=== PATIENT | male | born 1955 | race Caucasian/White ===

== ENCOUNTER → 2019-01-29 | Outpatient (CLI) | payer OTHER, SELFPAY ==
[2019-01-29 15:39] LABS: Absolute Lymphocyte Count 1.04 X10^3/ul (0.83-4.51); Absolute Neutrophil Count 2.9 X10^3/uL (2.0-7.7); Basophil# 0.03 X10^3/uL; Basophil% 0.7 % (0-1); Eosinophil# 0.08 X10^3/uL; Eosinophils% 1.7 % (0-5); Hematocrit 41.7 % (40-54); Hemoglobin 14.6 g/dl (13.0-16.5); Lymphocyte # 1.04 X10^3/ul (4.0); Lymphocyte % 22.7 % (19-41); Mean Corpuscular Hgb 31.7 pg (27.0-32.0); Mean Corpuscular Volume 90.7 fL (80-94); Mean Platelet Vol. 9.1 fl (6.2-12.0); Monocyte# 0.53 X10^3/uL; Monocyte% 11.5 % (0-10); Neutrophil % 63.2 % (47-70); POSITIVE COUNT NO; POSITIVE DIFFERENTIAL NO; POSITIVE MORPHOLOGY NO; Platelet Count 182 K/mm3 (150-450); RBC Distribution Width CV 12.7 % (11.6-14.6); RBC Distribution Width SD 41.8 fl (35.1-43.9); White Blood Count 4.6 K/mm3 (4.4-11.0)
[2019-01-29 16:01] LABS: AST(SGOT) 49 U/L (15-37); Alanine Aminotransfer ALT/SGPT 54 U/L (16-61); Albumin, Serum 4.3 g/dL (3.2-5.0); Alkaline Phosphatase 91 U/L (45-117); Anion Gap 9 (5-15); BUN 15 mg/dL (7-18); BUN/Creat Ratio 10.9 RATIO (10-20); Bilirubin, Direct 0.11 mg/dL (0.00-0.30); Calcium,Total 9.4 mg/dL (8.5-10.1); Chloride 94 mmol/L (98-107); Creatinine, Serum 1.38 mg/dL (0.70-1.30); EST Glomerular Filtration Rate 55 mL/min (>60); Est Glom Filt Rate - Afr Amer 67 mL/min (>60); Globulin 3.4 g/dL (2.2-4.2); Glucose 79 mg/dL (74-106); Potassium 4.4 mmol/L (3.5-5.1); Protein, Total 7.7 g/dL (6.4-8.2); Sodium Level 130 mmol/L (136-145)
[2019-02-03 20:06] LABS: QNTFERON TB Mitogen Value > 10.00 IU/mL (.); QNTFERON TB Nil Value 0.03 IU/mL (.); QNTFERON TB1+ Ag Value 0.06 IU/mL (.); QNTFERON TB2+ Ag Value 0.05 IU/mL (.)
[2019-02-04 11:44] LABS: QNTIFERON TB Positive Criteria Negative (Negative)
== END | disposition home or self-care (01) ==
LOC: MTLAB 14:04
DX: L40.0 Psoriasis vulgaris (principal)
CPT/HCPCS: 36415; 80048; 80076; 85025; 86480

== ENCOUNTER → 2019-11-06 16:33 | Outpatient (CLI) | payer OTHER, SELFPAY ==
[2019-11-06 17:35] LABS: Absolute Lymphocyte Count 1.19 X10^3/uL (0.83-4.51); Absolute Neutrophil Count 2.9 X10^3/uL (2.0-7.7); Basophil# 0.04 X10^3/uL; Basophil% 0.8 % (0-1); Eosinophil# 0.12 X10^3/uL; Eosinophils% 2.5 % (0-5); Hematocrit 38.8 % (40-54); Hemoglobin 13.1 g/dL (13.0-16.5); Lymphocyte # 1.19 X10^3/ul (4.0); Lymphocyte % 24.7 % (19-41); Mean Corp Hgb Conc 33.8 g/dL (32-36); Mean Corpuscular Volume 91.7 fL (80-94); Mean Platelet Vol. 9.4 fl (6.2-12.0); Monocyte# 0.52 X10^3/uL; Monocyte% 10.8 % (0-10); NRBC Flagged by Analyzer 0 % (0-5); Neutrophil # 2.93 X10^3/uL (2.7-7.7); Neutrophil % 60.8 % (47-70); Platelet Count 145 K/mm3 (150-450); RBC Distribution Width CV 12.1 % (11.6-14.6); RBC Distribution Width SD 40.8 fl (35.1-43.9); Red Blood Count 4.23 M/mm3 (4.6-6.2); White Blood Count 4.8 K/mm3 (4.4-11.0)
[2019-11-06 17:55] LABS: ALB/GLOB Ratio 1.2 RATIO (0.9-2.4); AST(SGOT) 41 U/L (15-37); Alanine Aminotransfer ALT/SGPT 47 U/L (16-61); Albumin, Serum 3.7 g/dL (3.2-5.0); Alkaline Phosphatase 77 U/L (45-117); Anion Gap 5 (5-15); BUN 13 mg/dL (7-18); Calcium,Total 8.7 mg/dL (8.5-10.1); Chloride 94 mmol/L (98-107); EST Glomerular Filtration Rate 59 mL/min (>60); Est Glom Filt Rate - Afr Amer 72 mL/min (>60); Globulin 3.1 g/dL (2.2-4.2); Glucose 87 mg/dL (74-106); Potassium 3.9 mmol/L (3.5-5.1); Protein, Total 6.8 g/dL (6.4-8.2); Sodium Level 129 mmol/L (136-145)
== END ==
PROVIDERS: Visit Provider Family Medicine
DX: Z01.818 Encounter for other preprocedural examination (principal)
CPT/HCPCS: 36415; 80053; 85025

== ENCOUNTER 2019-11-20 06:48 | Day surgery (SDC) | payer OTHER, SELFPAY ==
[2019-11-20 07:10] VITALS: BP 117/76; PULSE 58; RESP 14; TEMP 36.3; O2SAT 100; BMI 19.8
--- NOTE | 2019-11-20 07:30 | RAD_ITS ---
STUDY: X-RAY LEFT FOOT, 4 TOE REASON FOR EXAM: Male, 64 years old. HALLUX EXOSTECTOMY AND ARTHRODESIS HAMMERTOE CORRECTION W/INTERNAL FIXATION TECHNIQUE: 3 intraoperative view(s) of the toe were obtained. COMPARISON: None. FINDINGS: Intraoperative imaging provided for arthrodesis and hammertoe correction of the fourth toe. RAD/Toe(s) Min 2 Views IMPRESSION: Intraoperative imaging provided for arthrodesis and hammertoe correction of the fourth toe. Electronically Signed: Patrick Wong, at 13:15 EST , Service support ,
[2019-11-20] MEDS: Lactated Ringers 1,000 ML 80 ML IV (07:37)
--- NOTE | 2019-11-20 07:40 | PCM.PROGNOTE ---
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 There are no H&P changes. He is scheduled to have foot surgery today on November 20, 2019. - Physical Exam Vitals/I&O's: Vital Signs Temp Pulse Resp BP Pulse Ox 97.4 F L 58 L 14 117/76 100 11/20/19 07:10 11/20/19 07:10 11/20/19 07:10 11/20/19 07:10 11/20/19 07:10 Oxygen Delivery Method Room Air Weight: 60 kg Body Mass Index (BMI) 19.8 Current Medications Cefazolin Sodium 2 gm/ Sodium (Chloride) 110 mls @ 150 mls/hr IV PREOP ONE Stop: 11/20/19 07:43 Lactated Ringer's () 1,000 mls @ 80 mls/hr IV .[id number] INGA Stop: 11/20/19 19:29 Last Admin: 11/20/19 07:37 Dose: 80 mls/hr Documented by: Medical Necessity - Tobacco Use Smoking Status: Never smoker Tobacco Use: Non-smoker
[2019-11-20] MEDS: Cefazolin 2 GM in 0.9% Normal Saline 100 ML IV (08:17)
[2019-11-20] MEDS: Bupivacaine Mpf 0.5% 30 ML VIAL (08:40)
--- NOTE | 2019-11-20 10:05 | DCINST_ITS ---
Discharge Diet: No Restrictions Ice area for (Minutes): 15 - to back of knee if needed for pain.do not apply to foot Weight Bearing Status: Partial weight bearing - heel weightbear with surgical shoe. use crutches if needed for assistance Call your doctor if your incision/area has: Continuous Slow Oozing, Sudden Increased Bleeding, Increased Pain/ Swelling, Increased Redness, Foul Smelling Discharge, Swelling at the incision site Call your doctor if you observe: Fever of 101 or Higher, Calf discomfort, Uncontrolled pain Cleanse incision/area with: Keep Dressing Clean & Dry Allergies/Adverse Reactions: Allergies NSAIDS (Non-Steroidal Anti-Inflamma Allergy (Verified 11/20/19 07:08) Other KIDNEY DONOR STERI STRIPS Allergy (Uncoded 11/20/19 07:08) Rash Medications to take at Discharge Bisacodyl [Laxative] 5 mg PO DAILY 11/17/19 Bupropion HCl [Wellbutrin Xl] 150 mg PO DAILY 11/17/19 Clonazepam [Klonopin] 0.5 mg PO BID 11/17/19 Desvenlafaxine Succinate [Pristiq] 100 mg PO DAILY 11/17/19 Ferrous Sulfate, Dried [Iron] 45 mg PO DAILY 11/17/19 L.acidoph,Paracasei, B.lactis [Probiotic] 1 ea PO DAILY 11/17/19 Multivit-Minerals/FA/Lycopene [One Daily For Men Tablet] 1 ea PO DAILY 11/17/19 Olanzapine [Zyprexa] 5 mg PO DAILY 11/17/19 Polyethylene Glycol 3350 [Clearlax] 17 gm PO 0800 11/17/19 Polyethylene Glycol 3350 [Clearlax] 34 gm PO QHS 11/17/19 Primary Care Physician: Oseas Renae MD [Primary Care Provider] - Test Results: Test results from this visit will be discussed in further detail at your follow- up appointment, if applicable. Please Follow Up With: Enma Brown DPM When: [facility]. Call [phone] sooner if concerns. Proposed Discharge Date: 11/20/19
--- NOTE | 2019-11-20 10:07 | OP.PCM_ITS ---
Problem List (1) Hammertoe of left foot Status: Chronic (2) Osteophyte of left foot Status: Chronic Report of Operation Date of Procedure: 11/20/19 Pre-Operative Diagnosis: Left fourth hammertoe. Left exostosis hallux Post-Operative Diagnosis: Left fourth hammertoe. Left exostosis hallux Surgery/Procedure Performed:: Hammertoe correction left fourth with internal fixation (arthrodesis of proximal and distal interphalangeal joints). Exostectomy left hallux Description of Surgical Findings:: Hemostasis: Well-padded pneumatic left ankle tourniquet, 250 mmHg, 37 minutes Materials:one 22 mm micro 2.5 FT compression screw, 3-0 Vicryl, 4-0 nylon Specimens: None Complications: None Findings: Exostosis successfully removed from the hallux and rectus fourth toe after arthrodesis performed The patient tolerated the procedure and anesthesia well. He was transported to the PACU vital signs stable and vascular status intact to the left lower extremity. He will be transferred home upon continued stability. Intraoperative fluoroscopy was utilized to confirm proper alignment of the arthrodesis site with placement of internal fixation. This was also used to confirm adequate resection of the exostosis. No acute injuries were noted. breaker up: none - surgeon: Enma Brown Loan Processing Supervisor: Arnaldo Corea PGY1 Type of Anesthesia:: Local MAC - Preoperative: 10 cc of one-to-one mixture of 1% lidocaine plain and 0.5% Marcaine plain administered in typical left foot first and fourth ray block fashion Intraoperative: 5 cc of same mixture administered in hallux and fourth ray block fashion Specimen's removed: none Estimated Blood Loss (mL): < 50 mL Description of Procedure: Indications: This is a 64-year-old male with significant past medical history of anxiety, depression, and psoriasis who continues to complain of left foot pain. He has calluses to his left medial plantar hallux and also to his plantar medial fourth toe. He has a prominent palpable and radiographically apparent exostosis at the hallux interphalangeal joint medial aspect. 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 His neurovascular status is intact with brisk capillary refill time and palpable pulses. He is tried conservative care including callus debridement, padding, shoe gear change, insoles. He also had a prior surgical intervention including arthrodesis of the first metatarsal phalangeal joint. His pain is affecting his daily activities and ability to wear shoes. He elects to proceed with surgical intervention at this time. The planned procedure, benefits, risks, indications, complications, anticipated healing time management were discussed in detail with the patient. He understands and elects to proceed with surgery at this time. He understands risks and complications may include but are not limited to the following: pain, swelling, scarring, need for further surgery, transfer callus lesion, hardware failure, arthritis, blood clot, allergic reaction, chronic pain syndrome, recurrence, loss of limb, function, life. No guarantees were made. The informed surgical consent and limb were signed. His preoperative history and physical exam including clearance was reviewed. His diagnostic preoperative data was also reviewed including CBC, CMP, and EKG. I answered all of his questions. Procedure in detail: The patient was transported to the operating room via cart and placed on the operating room table in supine position. Final verification patient, surgery, limb designation was performed via the timeout procedure. MAC anesthesia was initiated and anesthesia team. Local anesthetic was administered. A well- padded pneumatic left ankle tourniquet was applied. The left lower extremity was prepped and draped in the usual aseptic manner and surgery began in the following: An Esmarch bandage was used to exsanguinate the left limb and the tourniquet was inflated at this time. The linear incision was made over the proximal interphalangeal joint and a transverse incision was made over the distal interphalangeal joint of the left fourth toe. Blunt dissection was performed down to the extensor tendon site. Care was taken to identify, protect, and retract all neurovascular structures at this point and throughout the remainder of surgery. The extensor tendon was excised at each site and the proximal and distal interphalangeal joints were entered. The collateral ligaments were carefully reflected off of the heads of both the proximal and middle phalanges to gain good joint exposure. A sagittal saw was next used to resect the head of the proximal phalanx and a little bit off of the base of the middle phalanx and also the head of the middle phalanx and a small portion of the base of the distal phalanx. Further a rongeur was used to confirm there past the subchondral bone plate. A temporary guidewire was placed across these joints and proper alignment and utilizing proper technique a micro 2.5 FT compression screw was applied with the toe in a rectus position. Intraoperative fluoroscopy was utilized to confirm this. The screw was placed in the desired trajectory and position. Next, attention was directed to the medial aspect of the left hallux in which a 2 cm curvilinear incision was made through the skin. Blunt dissection was performed down to the hallux interphalangeal joint. Next a sagittal saw was used to resect the medial prominent eminence flare off of the head of the proximal phalanx and the base of the distal phalanx. Adequate resection was confirmed with intraoperative fluoroscopy. This was smoothed with a rongeur and a rasp. The tourniquet was deflated at this time and brisk capillary refill time was noted to all digits of the left foot. No pulsatile bleeding was noted. Saline irrigation was performed. Deep closure was performed to both sites with Vicryl suture. The skin was reapproximated with 4-0 nylon utilizing horizontal mattress and simple suture technique. A postoperative dressing consisting of Betadine soaked Adaptic, 44 gauze, Kerlix, and Lanre wrap were applied. After procedure: The patient tolerated the procedure and anesthesia well. He was transported to the PACU with vital signs stable and vascular status intact to the left lower extremity. Postoperative x-rays were reviewed prior to leaving operating room. He will ice and elevate for pain inflammation management. He was provided with a postoperative pain medication prescription for [place] and was advised on safe and proper use. He will only take this if needed for pain. He will heel weight-bear with a surgical shoe in place to left limb and use crutches it only if needed for assistance. [facility]. His postoperative orders were entered electronically. Enma Brown DPM, [facility] Grafts/Implants Used: arthrex FT Micro compression screw - Complications none - Admit VTE Documentation VTE Present on Admission: No VTE Mechan Device Prophylaxis: SCD's VTE Pharm Prophylaxis ordered?: No Reason prophylaxis not ordered:: Procedure Not Indicated
[2019-11-20 10:11] VITALS: BP 117/76; BP 134/92; PULSE 64; RESP 16; TEMP 36.2; O2SAT 100
[2019-11-20 10:15] VITALS: BP 117/76; BP 144/90; PULSE 61; RESP 16; O2SAT 100
[2019-11-20 10:20] VITALS: BP 117/76; BP 146/91; PULSE 65; RESP 16; O2SAT 100
[2019-11-20 10:25] VITALS: BP 117/76; BP 141/94; PULSE 66; RESP 16; TEMP 36.1; O2SAT 100
[2019-11-20 11:34] VITALS: BP 117/76
== END 2019-11-20 11:35 | disposition home or self-care (01) ==
LOC: SDC 06:48 → AC 06:50
PROVIDERS: Referring Provider Podiatrist; Visit Provider Podiatrist
PROC: (CPT 28285; principal; 2019-11-20 08:15)
DX: M20.42 Other hammer toe(s) (acquired), left foot (principal); M25.775 Osteophyte, left foot; F41.9 Anxiety disorder, unspecified; F32.9 Major depressive disorder, single episode, unspecified; Z79.899 Other long term (current) drug therapy
CPT/HCPCS: 01480; 28285; 28298; 73660; 76000; C1713; J7120; J2405